=== PATIENT | male | born 1940 | race Native Hawaiian/Other Pacific Islander ===

== ENCOUNTER 2017-06-09 09:34 | Outpatient (CLI) | payer MEDICARE, OTHER ==
--- NOTE | 2017-06-09 13:34 | XRay Report ---
Standing views of the right knee: Pain. There is good alignment of the knee. There is mild narrowing of the medial joint compartment. The articular margins are smooth. The bones are well-mineralized. There is a small spur extending from the medial tibial plateau. The contours are not otherwise remarkable. No swelling and no effusion identified. 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
== END 2017-06-09 09:35 | disposition home or self-care (01) ==
LOC: SPVIMAG 09:34
PROVIDERS: ATTEND Orthopaedic Surgery Sports Medicine
DX: M17.11 Unilateral primary osteoarthritis, right knee (principal)